=== PATIENT | female | born 1985 | race Caucasian/White ===

== ENCOUNTER 2017-06-18 22:18 | Emergency (ER) | payer OTHER ==
[2017-06-18 22:32] VITALS: RESP 20
[2017-06-18 23:18] LABS: Basophils # (A) 0.1 k/uL (0-0.2); Basophils % (A) 1 %; CH 30.3; CHCM 35.1; Eosinophils # (A) 0.3 k/uL (0-0.7); Eosinophils % (A) 3 %; HCT 35.5 % (34.0-46.0); HDW 2.56; HGB 11.9 gm/dL (11.4-16.0); Luc # (Auto) 0.16; Luc % (Auto) 1; Lymphocytes # (A) 3.2 k/uL (1.0-4.8); Lymphocytes % (A) 28 %; MCHC 33.5 g/dL (31.0-37.0); MCV 86.6 fL (80.0-100.0); Mean Platelet Volume 7.3; Monocytes # (A) 0.6 k/uL (0-1.0); Monocytes % (A) 5 %; Neutrophils # (A) 7.3 k/uL (1.3-7.7); Neutrophils % (A) 63 %; RDW 13.5 % (11.5-15.5); WBC 11.6 k/uL (3.8-10.6); WBC (Perox) 11.95
--- NOTE | 2017-06-18 23:26 | ED ---
Female Urogenital HPI - General Chief complaint: Vaginal Bleeding Stated complaint: 11 weeks /Cramping Time Seen by Provider: 06/18/17 22:54 Source: patient, RN notes reviewed, old records reviewed Mode of arrival: ambulatory Limitations: no limitations - History of Present Illness Initial comments: This is a 32-year-old female presenting to the emergency Department chief complaint of vaginal bleeding for the past 3 days. Patient reports that she is currently 11 weeks . She reports that she's had multiple ultrasounds with her [facility] RN doctor trip. They state that the baby has not measured greater than 5 weeks when he denies ultrasounds. They state that last week they do not detect heart tones. Patient reports that this is her second miscarriage, she has no living children. Patient states that she is now having severe cramping. She feels nauseated but denies any vomiting. Normal bowel movements , normal urination. - Related Data Home Medications Medication Instructions Recorded Confirmed Pnv No.95/Ferrous Fum/Folic AC 06/18/17 [ Multivitamin Tablet] Allergies Allergy/AdvReac Type Severity Reaction Status Date / Time Pertussis Vaccines Allergy Unknown Verified 06/18/17 22:32 Childhood Review of Systems ROS Statement: Those systems with pertinent positive or pertinent negative responses have been documented in the HPI. ROS Other: All systems not noted in ROS Statement are negative. Past Medical History Past Medical History: No Reported History History of Any Multi-Drug Resistant Organisms: None Reported Additional Past Surgical History / Comment(s): wisdom teeth Past Psychological History: No Psychological Hx Reported Smoking Status: Current every day smoker Past Alcohol Use History: None Reported Past Drug Use History: None Reported General Exam - General Exam Comments Initial Comments: This is a 32-year-old female. No acute distress. Limitations: no limitations General appearance: alert, in no apparent distress Head exam: Present: atraumatic, normocephalic, normal inspection Eye exam: Present: normal appearance, PERRL, EOMI. Absent: scleral icterus, conjunctival injection, periorbital swelling ENT exam: Present: normal exam, mucous membranes moist Neck exam: Present: normal inspection. Absent: tenderness, meningismus, lymphadenopathy Respiratory exam: Present: normal lung sounds bilaterally. Absent: respiratory distress, wheezes, rales, rhonchi, stridor Cardiovascular Exam: Present: regular rate, normal rhythm, normal heart sounds. Absent: systolic murmur, diastolic murmur, rubs, gallop, clicks GI/Abdominal exam: Present: soft, normal bowel sounds. Absent: distended, tenderness, guarding, rebound, rigid External exam: Present: normal external exam Speculum exam: Present: vaginal bleeding. Absent: normal speculum exam By manual exam: Present: normal by manual exam. Absent: cervical motion tenderness Extremities exam: Present: normal inspection, full ROM, normal capillary refill. Absent: tenderness, pedal edema, joint swelling, calf tenderness Back exam: Present: normal inspection Neurological exam: Present: alert, oriented X3, CN II-XII intact Psychiatric exam: Present: normal affect, normal mood Skin exam: Present: warm, dry, intact, normal color. Absent: rash Course Vital Signs 06/18/17 22:27 Temperature 99.0 F Pulse Rate 77 Respiratory 20 Rate Blood Pressure 134/78 O2 Sat by Pulse 98 Oximetry Medical Decision Making - Medical Decision Making 32-year-old female presenting to the emergency department vaginal bleeding for the past 3 days. Patient reports that she thought that she may have passed her fetus. She states she was supposed to be 11 weeks . She did have ultrasound a few weeks ago which showed intrauterine however there was lack of growth and last ultrasound was no heart rate was detected.Patient's hCG levels measured 313. This is not compatible with typical gestational levels. Patient was informed of this and was told that she was having a miscarriage. She states that her previous hCG was 36,000. Patient is B+ blood type, no necessary use for RhoGAM at this time. Patient was given 2 mg of morphine due to her pain and cramping. Patient's transvaginal ultrasound was obtained. The results show No evidence of intrauterine or extrauterine gestation. The uterus appears heterogeneous and thickened. Given patient's history final likely represents prior demise. She was informed of her ultrasound result. Discussed that she needs to repeat her hCG levels in 2 days. Discussed following up with Dr. Magnaa her [facility] RN. Patient agrees to treatment plan will comply. Return parameters were discussed. - Lab Data Result diagrams: 06/18/17 23:01 Lab Results 06/18/17 06/18/17 06/18/17 Range/Units 23:01 23:01 23:01 WBC 11.6 H (3.8-10.6) k/uL RBC 4.10 (3.80-5.40) m/uL Hgb 11.9 (11.4-16.0) gm/dL Hct 35.5 (34.0-46.0) % MCV 86.6 (80.0-100.0) fL MCH 29.0 (25.0-35.0) pg MCHC 33.5 (31.0-37.0) g/dL RDW 13.5 (11.5-15.5) % Plt Count 370 (150-450) k/uL Neutrophils % 63 % Lymphocytes % 28 % Monocytes % 5 % Eosinophils % 3 % Basophils % 1 % Neutrophils # 7.3 (1.3-7.7) k/uL Lymphocytes # 3.2 (1.0-4.8) k/uL Monocytes # 0.6 (0-1.0) k/uL Eosinophils # 0.3 (0-0.7) k/uL Basophils # 0.1 (0-0.2) k/uL HCG, Quant 233.1 mIU/mL Urine Color Urine Appearance (Clear) Urine pH (5.0-8.0) Ur Specific [place] (1.001-1.035) Urine Protein (Negative) Urine Glucose (UA) (Negative) Urine Ketones (Negative) Urine Blood (Negative) Urine Nitrite (Negative) Urine Bilirubin (Negative) Urine Urobilinogen (<2.0) mg/dL Ur Leukocyte Esterase (Negative) Urine RBC (0-5) /hpf Urine WBC (0-5) /hpf Ur Squamous Epith Cells (0-4) /hpf Urine Mucus (None) /hpf Blood Type B Positive Blood Type Recheck CAB Indicated 06/18/17 Range/Units 23:10 WBC (3.8-10.6) k/uL RBC (3.80-5.40) m/uL Hgb (11.4-16.0) gm/dL Hct (34.0-46.0) % MCV (80.0-100.0) fL MCH (25.0-35.0) pg MCHC (31.0-37.0) g/dL RDW (11.5-15.5) % Plt Count (150-450) k/uL Neutrophils % % Lymphocytes % % Monocytes % % Eosinophils % % Basophils % % Neutrophils # (1.3-7.7) k/uL Lymphocytes # (1.0-4.8) k/uL Monocytes # (0-1.0) k/uL Eosinophils # (0-0.7) k/uL Basophils # (0-0.2) k/uL HCG, Quant mIU/mL Urine Color Yellow Urine Appearance Clear (Clear) Urine pH 6.5 (5.0-8.0) Ur Specific [place] 1.014 (1.001-1.035) Urine Protein Trace H (Negative) Urine Glucose (UA) Negative (Negative) Urine Ketones Negative (Negative) Urine Blood Moderate H (Negative) Urine Nitrite Negative (Negative) Urine Bilirubin Negative (Negative) Urine Urobilinogen <2.0 (<2.0) mg/dL Ur Leukocyte Esterase Trace H (Negative) Urine RBC >182 H (0-5) /hpf Urine WBC 3 (0-5) /hpf Ur Squamous Epith Cells 1 (0-4) /hpf Urine Mucus Rare H (None) /hpf Blood Type Blood Type Recheck - Radiology Data Radiology results: report reviewed No evidence of intrauterine or extrauterine gestation. The uterus appears heterogeneous and thickened. Given patient's history final likely represents prior demise. Disposition Clinical Impression: Miscarriage Disposition: HOME SELF-CARE Condition: Good Instructions: Miscarriage (ED) Additional Instructions: Patient is a Motrin and Tylenol for pain. Follow-up with your primary care physician as well as [facility] RN. Return to the emergency department if any alarming signs or symptoms occur. Patient is to repeat blood work in 2 days. Referrals: None,Stated [Primary Care Provider] - 1-2 days Bernadine Vázquez DO [Doctor of Osteopathic Medicine] - 1-2 days Time of Disposition: 00:28
[2017-06-18 23:33] LABS: Appearance,Urine Clear (Clear); Bilirubin,Urine Negative (Negative); Glucose,Urine (UA) Negative (Negative); Ketones,Urine Negative (Negative); Leukocyte Esterase,Urine Trace (Negative); Mucus,Urine Rare /hpf; Nitrite,Urine Negative (Negative); PH, Urine 6.5 (5.0-8.0); Particle Count 2338; Protein,Urine Trace (Negative); RBC,Urine >182 /hpf (0-5); Specific Gravity,Urine 1.014 (1.001-1.035); Squamous Epithelial Cell,Urine 1 /hpf (0-4); UA Billing (MACRO vs. MICRO) MICRO; Urobilinogen,Urine <2.0 mg/dL (<2.0); WBC,Urine 3 /hpf (0-5)
[2017-06-18] MEDS ORDERED: MORPHINE SULFATE 2 MG/ML SYRINGE IVP ONE (23:44)
--- NOTE | 2017-06-19 00:24 | US ---
EXAM: US After First Trimester, Transabdominal US , Transvaginal CLINICAL HISTORY: 32-year-old female with pelvic pain and vaginal bleeding on and off since Wednesday. Patient states that on previous prior surgical ultrasounds a heart rate was not seen. LMP: 12 weeks 0 days. Beta- hCG was not given. TECHNIQUE: Real-time transabdominal and endovaginal obstetrical ultrasound of the maternal pelvis first trimester with image documentation. Endovaginal imaging was used for better evaluation of the fetus and adnexa. COMPARISON: No relevant prior studies available. FINDINGS: Fetus: There is no evidence of an intrauterine or extrauterine gestation. Endometrium appears heterogeneous and thickened, measuring up to 1.6 cm. Given the patient's history, finding likely represents prior demise. MATERNAL: Uterus/adnexa: The uterus is anteverted, measuring 8.1 x 5.2 x 4.47 m. No myometrial mass. The right ovary measures 2.8 x 1.8 x 1.8 cm. The left ovary measures 2.6 x 1.9 x 1.6 cm. Right ovarian cyst is seen, measuring up to 1.4 cm. Blood flow is seen within both ovaries. Cervix: Unremarkable as visualized. Free fluid: No free fluid. IMPRESSION: No evidence of intrauterine or extra uterine gestation. The endometrium appears heterogeneous and thickened. Given the patient's history, finding likely represents prior demise. Correlate with patient's beta hCG values.
[2017-06-19 00:38] VITALS: BP 110/70; PULSE 70; TEMP 97
== END 2017-06-19 00:37 | disposition home or self-care (01) ==
LOC: EC 22:18
DX: O03.9 Complete or unspecified spontaneous abortion without complication (principal); O99.89 Other specified diseases and conditions complicating pregnancy, childbirth and the puerperium; R11.0 Nausea; Z67.20 Type B blood, Rh positive; O99.331 Smoking (tobacco) complicating pregnancy, first trimester; F17.200 Nicotine dependence, unspecified, uncomplicated; Z79.899 Other long term (current) drug therapy; Z88.7 Allergy status to serum and vaccine; Z3A.11 11 weeks gestation of pregnancy
CPT/HCPCS: 36415; 86900; 86901; 85025; 81001; 84702; 76801; 76817; 99284; 96374; J2270